=== PATIENT | male | born 1960 | race Caucasian/White ===

== ENCOUNTER → 2017-03-03 | Outpatient (CLI) | payer MEDICAID ==
[~2017-03-03] MED LIST: BLOOD PRESSURE PO; NORVASC 10MG10 MG PO; ZESTRIL40 MG PO
== END ==
LOC: COL.PUL 11:18
DX: R91.1 Solitary pulmonary nodule (principal); F17.200 Nicotine dependence, unspecified, uncomplicated

== ENCOUNTER 2017-03-23 08:30 | Outpatient (RCR) | payer MEDICAID | END 2017-05-17 | disposition still patient (30) | LOC: MKS.ESL.PT | DX: Z47.89 Encounter for other orthopedic aftercare (principal); M54.5 Low back pain; R53.1 Weakness; R29.3 Abnormal posture; R26.89 Other abnormalities of gait and mobility; F17.210 Nicotine dependence, cigarettes, uncomplicated; Z98.1 Arthrodesis status; Z98.890 Other specified postprocedural states | CPT/HCPCS: G8990-GP; G8991-GP ==

== ENCOUNTER → 2017-07-22 | Outpatient (RCR) | payer MEDICAID | END | disposition home or self-care (01) | LOC: WSPT | DX: Z47.89 Encounter for other orthopedic aftercare (principal); M48.061 Spinal stenosis, lumbar region without neurogenic claudication; F17.290 Nicotine dependence, other tobacco product, uncomplicated; Z98.1 Arthrodesis status ==

== ENCOUNTER 2017-07-29 10:30 | Outpatient (RCR) | payer MEDICAID | END 2017-10-25 | disposition home or self-care (01) | LOC: WSPT | DX: M48.061 Spinal stenosis, lumbar region without neurogenic claudication (principal); Z53.9 Procedure and treatment not carried out, unspecified reason ==

== ENCOUNTER 2018-03-15 00:54 | Observation (INO) | payer MEDICAID ==
[~2018-03-15] VITALS: Ht 170.2 cm; Wt 113.1 kg
[2018-03-15] VITALS (11 sets, daily range): BP systolic 139–185; BP diastolic 65–101; PULSE 53–104; TEMP 97.4–98.9
[2018-03-15 01:56] LABS: BASO # 0.1 (0.0-0.2); BASO % 0.6 % (0.0-2.0); EOS # 0.4 (0.0-0.7); GRAN # 10.2 (1.4-6.5); HEMATOCRIT 42.4 % (42.0-52.0); LYMPH % 14.2 % (20.0-51.0); MEAN CELL VOLUME 83 fl (80.0-100.0); MEAN CORPUSCULAR HEMOGLOBIN 29 pg (27.0-31.0); MEAN CORPUSCULAR HGB CONC 35 g/dl (33.0-37.0); MEAN PLATELET VOLUME 9.8 fl (7.4-10.4); MONO # 1.4 (0.1-0.6); MONO % 9.7 % (1.7-9.3); PLATELET COUNT 290 K/mm3 (130-400); RED BLOOD COUNT 5.11 M/mm3 (4.20-5.60)
[2018-03-15 02:09] LABS: ALANINE AMINOTRANSFERASE 29 U/L (21-72); ALBUMIN 4.1 gm/dL (3.5-5.0); ALKALINE PHOSPHATASE 99 U/L (50-136); ANION GAP 11 mmol/L (7-16); AST,SGOT 17 U/L (15-37); BILIRUBIN,TOTAL 0.4 mg/dL (0.0-1.0); BLOOD UREA NITROGEN 10 mg/dL (9-20); C-REACTIVE PROTEIN 5.2 mg/dL (0.0-0.9); CALCIUM 8.7 mg/dL (8.4-10.2); CARBON DIOXIDE 24 mmol/L (22-30); CHLORIDE 99 mmol/L (98-107); GLUCOSE 202 mg/dL (74-106); LIPASE 152 U/L (23-300); POTASSIUM 3.3 mmol/L (3.4-5.0); SODIUM 134 mmol/L (137-145); TOTAL PROTEIN 7.3 gm/dL (6.4-8.2)
[2018-03-15 02:18] LABS: TROPONIN-I < 0.012 ng/mL (0.000-0.034)
[2018-03-15 03:09] LABS: COLLECTION METHOD CLEAN CATCH
[2018-03-15 03:17] LABS: PH 6 (5-8); SQUAMOUS EPITHELIAL None Seen /hpf; URINE APPEARANCE Clear; URINE BACTERIA None Seen /hpf; URINE BILIRUBIN Negative (NEGATIVE); URINE BLOOD Negative (NEGATIVE); URINE COLOR Straw; URINE GLUCOSE 3+ (NEGATIVE); URINE KETONE Negative (NEGATIVE); URINE LEUKOCYTE ESTERASE Negative (NEGATIVE); URINE NITRATE Negative (NEGATIVE); URINE PROTEIN(semi-quant) Negative (NEGATIVE); URINE RBC 0-2 /hpf; URINE UROBILINOGEN Negative (NEGATIVE)
[2018-03-16 00:02] VITALS: BP 135/67; PULSE 103; TEMP 98
[2018-03-16 04:19] VITALS: BP 146/61; PULSE 97; TEMP 98.6
[2018-03-16 07:45] VITALS: BP 157/84; PULSE 72; TEMP 98
== END 2018-03-16 08:50 | disposition home or self-care (01) ==
LOC: COL.ER 00:54 → SURG 02:38
PROVIDERS: Emergency Medicine
DX: K80.12 Calculus of gallbladder with acute and chronic cholecystitis without obstruction (principal); F17.210 Nicotine dependence, cigarettes, uncomplicated; I10 Essential (primary) hypertension; J44.9 Chronic obstructive pulmonary disease, unspecified; K21.9 Gastro-esophageal reflux disease without esophagitis; M54.9 Dorsalgia, unspecified
CPT/HCPCS: G0378; J0330; J1100; J1170; J1885; J2250; J2405; J2543; J2704; J2765; J3010; J3480; J7030; J7120; Q9967

== ENCOUNTER 2022-07-07 11:15 | Outpatient (RCR) | payer MEDICARE | END 2022-07-28 | LOC: WSC | DX: M54.9 Dorsalgia, unspecified (principal); G89.29 Other chronic pain ==

== ENCOUNTER 2024-04-05 11:14 | Emergency (ER) | payer MEDICARE ==
[~2024-04-05] VITALS: Ht 170.2 cm; Wt 102.7 kg
[2024-04-05] MEDS ORDERED: Morphine 4 MG/ML VIAL IV ONE ×2 (11:30→17:15)
[2024-04-05] MEDS ORDERED: Ondansetron 4 MG/2 ML VIAL IV ONE (11:45)
[2024-04-05 11:59] LABS: BASO # 0.1 K/mm3 (0.0-0.2); BASO % 0.7 % (0.0-2.0); EOS # 0.6 K/mm3 (0.0-0.7); EOS % 5.5 % (0.0-4.0); GRAN # 7.8 K/mm3 (1.4-6.5); GRAN % 67.4 % (42.2-75.2); HEMATOCRIT 45.8 % (42.0-52.0); HEMOGLOBIN 15.2 g/dl (13.5-18.0); LYMPH # 2.1 K/mm3 (1.2-3.4); LYMPH % 18.2 % (20.0-51.0); MEAN CELL VOLUME 80 fl (80.0-100.0); MEAN CORPUSCULAR HEMOGLOBIN 27 pg (27-31); MEAN CORPUSCULAR HGB CONC 33 g/dl (33.0-37.0); MEAN PLATELET VOLUME 9.4 fl (7.4-10.4); MONO # 0.9 K/mm3 (0.1-0.6); MONO % 7.9 % (1.7-9.3); PLATELET COUNT 344 K/mm3 (130-400); RED BLOOD COUNT 5.74 M/mm3 (4.20-5.60); REDCELL DISTRIBUTION WIDTH-CV 15.1 % (11.5-14.5)
[2024-04-05 12:01] LABS: ALBUMIN 4.1 g/dL (3.4-4.8); BILIRUBIN,TOTAL 0.4 mg/dL (0.2-1.2); C-REACTIVE PROTEIN 0.48 mg/dL (0.00-0.50); CALCIUM 10.1 mg/dL (8.4-10.2); CREATININE, serum 0.97 mg/dL (0.72-1.25); POTASSIUM 3.6 mEq/L (3.5-4.5); PROTHROMBIN TIME 11.1 SECONDS (9.7-12.8); TOTAL PROTEIN 7.9 g/dl (6.2-8.1)
[2024-04-05 12:17] LABS: ERYTHROCYTE SEDIMENTATION RATE 19 mm/hr (0-30)
[2024-04-05 17:30] VITALS: BP 137/78; PULSE 72; TEMP 97.7
[2024-04-05] MEDS ORDERED: Home HYDROcodone/Acetaminophen 5/325 MG #4 TABS/PACK PO ONE (17:30)
== END 2024-04-05 17:30 | disposition home or self-care (01) ==
LOC: COL.ER 11:14
PROVIDERS: Emergency Medicine
DX: M25.552 Pain in left hip (principal); R93.6 Abnormal findings on diagnostic imaging of limbs
CPT/HCPCS: J2270; J2405